=== PATIENT | male | born 1975 | race Caucasian/White ===

== ENCOUNTER 2016-12-30 21:54 | Inpatient (IN) | payer OTHER ==
[2016-12-30] MEDS ORDERED: Sodium Chloride 0.9% 1,000 ML IV ONE (22:25)
[2016-12-30 22:34] LABS: BASO # 0.1 K/uL (0.0-0.2); BASO % 0.7 % (0.0-2.0); EOS # 0.2 K/uL (0.0-0.7); EOS % 1.2 % (0.0-4.0); HEMOGLOBIN 15.4 g/dL (12.0-18.0); MEAN CELL VOLUME 88.4 fL (80.0-94.0); MEAN CORPUSCULAR HEMOGLOBIN 29.9 pg (27.0-31.0); MEAN CORPUSCULAR HGB CONC 33.8 g/dL (33.0-37.0); MEAN PLATELET VOLUME 7.5 fL (7.2-11.7); MONO % 6.6 % (0.0-10.0); NEUT # 10.7 K/uL (1.8-7.0); NEUT % 71.5 % (50.0-75.0); NRBC % 0.1 % (0.0-2.0); RBC 5.16 Mil/uL (4.40-5.90); RED CELL DISTRIBUTION WIDTH 13.9 % (11.5-14.5); WHITE BLOOD COUNT 14.9 K/uL (4.8-10.8)
--- NOTE | 2016-12-30 22:34 | C.PDOC ---
History Of Present Illness 41 year old male with no PMHx who presents to the ER with a complaint of right sided abdominal pain. Patient also reports having nausea; denies vomiting, fever , chills, or other complaints. Time Seen by Provider: 12/30/16 22:23 Chief Complaint (Nursing): Abdominal Pain History Per: Patient History/Exam Limitations: no limitations Onset/Duration Of Symptoms: Days Current Symptoms Are (Timing): Still Present Context: Food Location Of Pain/Discomfort: RUQ Radiation Of Pain To:: None Quality Of Discomfort: Unable To Describe Associated Symptoms: Nausea. denies: Fever, Chills, Vomiting Exacerbating Factors: None Alleviating Factors: None Recent travel outside of the [place]: No Past Medical History Reviewed: Historical Data, Nursing Documentation, Vital Signs Vital Signs: Last Vital Signs Temp 97.5 F L 12/31/16 08:00 Pulse 80 12/31/16 08:00 Resp 20 12/31/16 08:00 BP 105/68 12/31/16 08:00 Pulse Ox 96 12/31/16 08:00 - Medical History PMH: No Chronic Diseases Surgical History: No Surg Hx Family History: States: Unknown Family Hx - Social History Hx Alcohol Use: Yes Hx Substance Use: No - Immunization History Hx Tetanus Toxoid Vaccination: Yes Hx Influenza Vaccination: Yes Hx Pneumococcal Vaccination: No Review Of Systems Except As Marked, All Systems Reviewed And Found Negative. Constitutional: Negative for: Fever, Chills Gastrointestinal: Positive for: Nausea, Abdominal Pain. Negative for: Vomiting , Diarrhea Physical Exam - Physical Exam Appears: Non-toxic, No Acute Distress Skin: Normal Color, Warm, Dry Head: Atraumatic, Normacephalic Oral Mucosa: Moist Chest: Symmetrical, No Tenderness Cardiovascular: Rhythm Regular, No Murmur Respiratory: Normal Breath Sounds, No Rales, No Rhonchi, No Wheezing Gastrointestinal/Abdominal: Soft, Tenderness (RUQ), No Guarding, No Rebound Neurological/Psych: Oriented x3, Normal Speech, Normal Cognition ED Course And Treatment - Laboratory Results Result Diagrams: 12/31/16 11:55 12/31/16 11:55 O2 Sat by Pulse Oximetry: 99 (Room air) Pulse Ox Interpretation: Normal - CT Scan/US Abdominal US Other Rad Studies (CT/US): Read By Radiologist, Radiology Report Reviewed CT/US Interpretation: EXAM: US Abdomen Complete. CLINICAL HISTORY: 41 years old, male; Pain; Abdominal pain; Epigastric; Additional info: Abd pain. TECHNIQUE: Real-time ultrasound of the abdomen (complete) with image documentation. COMPARISON: No relevant prior studies available. FINDINGS: Liver: Fatty infiltration. No mass. No intrahepatic ductal dilatation. Gallbladder: No gallstones. No wall thickening. No pericholecystic fluid. No sonographic Weaver's. sign. Common bile duct: No dilatation. No stones. Pancreas: Unremarkable as visualized. Kidneys: Normal echogenicity. No hydronephrosis. Spleen: No splenomegaly. Aorta: Unremarkable. No aneurysm. Inferior vena cava: Unremarkable. Free fluid: No significant free fluid. IMPRESSION: 1. No acute findings. 2. Non-acute findings are described above. CT Abdomen Other Rad Studies (CT/US): Read By Radiologist, Radiology Report Reviewed CT/US Interpretation: EXAM: CT Abdomen and Pelvis With Intravenous Contrast. CLINICAL HISTORY: 41 years old, male; Pain; Abdominal pain; Additional info: Right sided abd pain. TECHNIQUE: Axial computed tomography images of the abdomen and pelvis with intravenous contrast. This CT. exam was performed using one or more of the following dose reduction techniques: automated. exposure control, adjustment of the mA and/or kV according to patient size, and/ or use of iterative. reconstruction technique. Coronal and sagittal reformatted images were created and reviewed. COMPARISON: US - ABDOMEN COMPLETE 12/30/2016 10:44:23 PM. FINDINGS: Lower thorax: Minimal atelectasis. Subcentimeter subpleural nodule vs focal scarring RIGHT middle. lobe. ABDOMEN : Liver: Fatty infiltration. Gallbladder and bile ducts: No calcified stones. No ductal dilation. Pancreas: No ductal dilation. No mass. Spleen: No splenomegaly. Adrenals: No mass. Kidneys and ureters: Too small to characterize lesion within RIGHT kidney. No hydronephrosis. Stomach and bowel: Apparent mild mural/fold thickening of jejunal loops. No associated. inflammatory stranding. Few segmental areas of underdistention of colon. No obstruction. Appendix: Enlarged proximal to mid appendix, measuring up to 0.9 cm in diameter. Apparent mild. mural thickening/enhancement. Appendicolith within distal appendix. No definite associated. stranding. PELVIS: Bladder: Unremarkable. Reproductive: Unremarkable as visualized. ABDOMEN and PELVIS: Intraperitoneal space: No significant fluid collection. No free air. Bones/ joints: No acute fracture. Soft tissues: Unremarkable. Vasculature: Minimal atherosclerotic disease. No aneurysm. Lymph nodes: No pathologically enlarged lymph nodes. IMPRESSION: 1. Mildly enlarged appendix with apparent mild wall thickening/enhancement with appendicolith. Appendicitis not excluded. 2. Possible mild enteritis. Clinical correlation is needed. 3. Incidental/non- acute findings are described above. Medical Decision Making Medical Decision Making: Impression: 41 year old male with RUQ pain. r/o gallbladder pathology Plan: * Blood work * Urinalysis * Abdominal US * Tylenol * Zofran * IV fluids * 1100: pt now with rlq pain ct added. noted luekocytosis. empiric zosyn dosed. ct pendign. Disposition - Disposition Disposition: HOSPITALIZED Disposition Time: 11:00 Condition: STABLE - Clinical Impression Clinical Impression: Appendicitis - Scribe Statement The provider has reviewed the documentation as recorded by the Scribe Javier Mcgrath All medical record entries made by the Josesitoiblane were at my direction and personally dictated by me. I have reviewed the chart and agree that the record accurately reflects my personal performance of the history, physical exam, medical decision making, and the department course for this patient. I have also personally directed, reviewed, and agree with the discharge instructions and disposition.
[2016-12-30] MEDS ORDERED: Sodium Chloride 0.9% 1,000 ML ONE (22:44)
[2016-12-30 22:46] LABS: PROTHROMBIN TIME 10.9 SECONDS (9.7-12.2)
[2016-12-30 22:48] LABS: ALBUMIN 4.3 g/dL (3.5-5.0)
[2016-12-30 22:51] LABS: ALB/GLOB RATIO 1.4 (1.0-2.1); AST/SGOT 30 U/L (17-59); GFR AFRICAN-AMERICAN > 60; GFR NON-AFRICAN AMERICAN > 60
[2016-12-30 22:52] LABS: ALT/SGPT 45 U/L (21-72); BLOOD UREA NITROGEN 20 mg/dL (9-20); CALCIUM 8.7 mg/dl (8.6-10.4); LIPASE 94 U/L (23-300)
[2016-12-30 23:06] LABS: URINE BILIRUBIN NEGATIVE (NEGATIVE); URINE BLOOD NEGATIVE (NEGATIVE); URINE CLARITY Clear (Clear); URINE COLOR Yellow (YELLOW); URINE GLUCOSE (UA) NORMAL (Normal); URINE LEUKOCYTE ESTERASE NEG Leu/uL (Negative); URINE NITRATE NEGATIVE (NEGATIVE); URINE PROTEIN NEGATIVE (NEGATIVE)
--- NOTE | 2016-12-30 23:14 | US ---
EXAM: US Abdomen Complete CLINICAL HISTORY: 41 years old, male; Pain; Abdominal pain; Epigastric; Additional info: Abd pain TECHNIQUE: Real-time ultrasound of the abdomen (complete) with image documentation. COMPARISON: No relevant prior studies available. FINDINGS: Liver: Fatty infiltration. No mass. No intrahepatic ductal dilatation. Gallbladder: No gallstones. No wall thickening. No pericholecystic fluid. No sonographic Weaver's sign. Common bile duct: No dilatation. No stones. Pancreas: Unremarkable as visualized. Kidneys: Normal echogenicity. No hydronephrosis. Spleen: No splenomegaly. Aorta: Unremarkable. No aneurysm. Inferior vena cava: Unremarkable. Free fluid: No significant free fluid. IMPRESSION: 1.No acute findings. 2.Non-acute findings are described above.
[2016-12-30] MEDS ORDERED: Iodixanol 320 MG/ML 100 ML BOTTLE IV ONE (23:30)
[2016-12-30] MEDS ORDERED: Piperacillin/Tazobact 3.375 gm 100 ML IVPB STA (23:59)
[2016-12-31] MEDS ORDERED: Piperacillin/Tazobact 3.375 gm 100 ML IVPB ONE ×2 (00:24→14:18)
--- NOTE | 2016-12-31 01:47 | CP.PCM.HP ---
<Doug Bynum - Last Filed: 12/31/16 07:20> History of Present Illness - History of Present Illness History of Present Illness: 41M w/ no significant PMHx presented to the ED w/ complaints of RLQ abdominal pain. Patient mentioned pain began Friday afternoon, states pain got progressively worse throughout the weekend. Currently reports pain as an 8/10. Patient states he has been feeling nauseous but denies vomiting. Denies having similar symptoms in the past. Denies taking medication to alleviate pain. Notes decreased appetite since pain began. Currently denies fever/chills, chest pain, SOB, dysuria, diarrhea, constipation. . Present on Admission - Present on Admission Any Indicators Present on Admission: No Review of Systems - Review of Systems Review of Systems: 12pt ROS negative, except as stated in HPI Past Patient History - Past Social History Smoking Status: Heavy Smoker > 10 Cigarettes Daily - PSYCHIATRIC Hx Substance Use: No - SURGICAL HISTORY Hx Surgeries: No Meds Allergies/Adverse Reactions: Allergies Allergy/AdvReac Type Severity Reaction Status Date / Time No Known Allergies Allergy Unverified 12/30/16 22:12 Physical Exam - Constitutional Appears: No Acute Distress - Head Exam Head Exam: NORMOCEPHALIC - Eye Exam Eye Exam: Normal appearance - ENT Exam ENT Exam: Mucous Membranes Moist - Respiratory Exam Respiratory Exam: NORMAL BREATHING PATTERN - Cardiovascular Exam Cardiovascular Exam: +S1, +S2 - GI/Abdominal Exam GI & Abdominal Exam: Guarding, Rebound, Tenderness. absent: Distended, Firm, Rigid Additional comments: +psoas +RLQ tenderness +McBurney's - Neurological Exam Neurological exam: Alert, Oriented x3 - Psychiatric Exam Psychiatric exam: Normal Mood - Skin Skin Exam: Dry, Warm Results - Vital Signs Recent Vital Signs: Last Vital Signs Temp 98.4 F 12/31/16 01:31 Pulse 70 12/31/16 01:31 Resp 18 12/31/16 01:31 BP 117/80 12/31/16 01:31 Pulse Ox 98 12/31/16 01:31 - Labs Result Diagrams: 12/30/16 22:30 12/30/16 22:30 Assessment & Plan - Assessment and Plan (Free Text) Assessment: 41M w/ acute appendicitis -NPO -IVF -Abx -Analgesics/Anti-emetics -EKG -Coags -OR in AM for laparoscopic appendectomy -Further recs per Dr. Leonardo <Brian Leonardo - Last Filed: 12/31/16 16:41> Results - Vital Signs Recent Vital Signs: Last Vital Signs Temp 97.5 F L 12/31/16 08:00 Pulse 80 12/31/16 08:00 Resp 20 12/31/16 08:00 BP 105/68 12/31/16 08:00 Pulse Ox 99 12/31/16 13:54 - Labs Result Diagrams: 12/31/16 11:55 12/31/16 11:55 Labs: Laboratory Results - last 24 hr 12/31/16 12/31/16 11:55 11:55 WBC 6.3 D RBC 4.80 Hgb 14.5 Hct 42.5 MCV 88.7 MCH 30.1 MCHC 34.0 RDW 13.3 Plt Count 218 MPV 7.5 Sodium 139 Potassium 3.9 Chloride 103 Carbon Dioxide 26 Anion Gap 14 BUN 12 Creatinine 0.9 Est GFR ( Amer) > 60 Est GFR (Non-Af Amer) > 60 Random Glucose 86 Calcium 8.1 L Attending/Attestation - Attestation I have personally seen and examined this patient.: Yes I have fully participated in the care of the patient.: Yes I have reviewed all pertinent clinical information: Yes Notes (Text): 12/31/16 16:37 Pt was seen and examined at bedside on 12/31/16 Agree with above note and assessment Pt with acute Appendicitis PMH: None PSH: None Allergies: None Medication: reviewed Family history: Not contributory OR for Lap Appendectomy possible Open Consent NPO, IVF, IV antibiotics Plan d.w pt in detail Risk and benefit explained in detail.
[2016-12-31] MEDS: Lactated Ringer's 1,000 ML IV SCH ×3 (02:08→18:56)
--- NOTE | 2016-12-31 08:28 | CT ---
PROCEDURE: CT Abdomen and Pelvis with contrast HISTORY: right sided abd pain COMPARISON: Abdominal ultrasound performed 12/30/16 TECHNIQUE: Contrast dose: 100 mL Visipaque 320 Radiation dose: Total exam DLP = 448.29 mGy-cm. This CT exam was performed using one or more of the following dose reduction techniques: Automated exposure control, adjustment of the mA and/or kV according to patient size, and/or use of iterative reconstruction technique. FINDINGS: LOWER THORAX: Minimal atelectasis. No visible pleural effusion or pneumothorax. 3 mm lingular lymph node (series 5, image 2). Sub cm subpleural nodule versus focal scarring, right middle lobe. LIVER: Hypoattenuation of the liver consistent with hepatic steatosis. GALLBLADDER AND BILE DUCTS: Contracted gallbladder state limits evaluation. PANCREAS: Unremarkable. SPLEEN: Unremarkable. ADRENALS: Unremarkable. KIDNEYS AND URETERS: The kidneys enhance symmetrically. No hydronephrosis or obstructing calculus identified. Too small to characterize 4 mm hypodensity within the right kidney ; statistically likely a cyst or hemangioma. VASCULATURE: No aortic aneurysm. BOWEL: Stomach is nondistended. Lack of oral contrast limits evaluation for bowel pathology. Bowel loops appear within normal limits of caliber without evidence of obstruction. Mild mural/fold thickening involving the jejunum. No associated inflammatory stranding appreciated. APPENDIX: The proximal to mid appendix appears dilated measuring up to approximately 11 mm in diameter. Subtle apparent mural thickening/ enhancement. Tiny calcification within the lumen consistent with appendicolith. No significant periappendiceal inflammatory changes appreciated. PERITONEUM: No significant free fluid. No definite free air. LYMPH NODES: No bulky adenopathy identified. BLADDER: Unremarkable. REPRODUCTIVE: The prostate gland measures approximately 4.1 x 4.6 cm. BONES: Mild degenerative changes. OTHER FINDINGS: None. IMPRESSION: Enlarged appendix with apparent wall thickening/enhancement and appendicolith. No significant periappendiceal inflammatory changes identified. Correlate clinically for possibility of appendicitis. Possible mild enteritis. Correlate clinically. Additional incidental findings as above. Preliminary impression was provided by virtual radiologic.
[2016-12-31] MEDS: Piperacillin/Tazobact 3.375 GM in Sodium Chloride 100 ML IVPB SCH ×2 (09:38→16:59)
[2016-12-31 12:08] LABS: HEMOGLOBIN 14.5 g/dL (12.0-18.0); MEAN CELL VOLUME 88.7 fL (80.0-94.0); MEAN CORPUSCULAR HEMOGLOBIN 30.1 pg (27.0-31.0); MEAN PLATELET VOLUME 7.5 fL (7.2-11.7); RBC 4.8 Mil/uL (4.40-5.90); RED CELL DISTRIBUTION WIDTH 13.3 % (11.5-14.5)
[2016-12-31 12:14] LABS: WHITE BLOOD COUNT 6.3 K/uL (4.8-10.8)
[2016-12-31 12:23] LABS: GFR AFRICAN-AMERICAN > 60; GFR NON-AFRICAN AMERICAN > 60
[2016-12-31 12:24] LABS: BLOOD UREA NITROGEN 12 mg/dL (9-20); CALCIUM 8.1 mg/dl (8.6-10.4)
[2016-12-31] MEDS ORDERED: Lidocaine 1% Inj (20ml) ONE (13:45)
[2016-12-31] MEDS ORDERED: Bupivacaine-Epi 0.25%-1:200,000 PF Inj ONE (13:45)
[2016-12-31] MEDS ORDERED: Lactated Ringer's 1,000 ML IV ONE ×2 (14:50→16:00)
[2016-12-31] MEDS ORDERED: Propofol 10 mg/ml Inj (20 ML) ONE (14:54)
[2016-12-31] MEDS ORDERED: Midazolam 2 MG/2 ML VIAL ONE (14:55)
[2016-12-31] MEDS ORDERED: Rocuronium 10 mg/ml (5 ml) ONE (15:30)
[2016-12-31] MEDS ORDERED: Neostigmine Methylsulfate 3mg/3ml Syringe IV ONE (15:47)
--- NOTE | 2016-12-31 16:34 | PCM.SURG1 ---
Surgeon's Initial Post Op Note - Surgeon's Notes Surgeon: Dr. Leonardo Manager Background: Duyen Crook, PGY2; Mark Cabello, OMS3 Pre-Operative Diagnosis: Acute appendicitis Operative Findings: see full operative report Post-Operative Diagnosis: same Operation Performed: Laparoscopic appendectomy Specimen/Specimens Removed: appendix Estimated Blood Loss: EBL {In ML}: 50 Date of Surgery/Procedure: 12/31/16 Time of Surgery/Procedure: 15:00
[2016-12-31] MEDS: HYDROmorphone 0.5 mg/0.5 ml ISec IVP PRN ×3 (16:51→18:02)
[2017-01-01 00:02] VITALS: RESP 20
[2017-01-01] MEDS: Piperacillin/Tazobact 3.375 GM in Sodium Chloride 100 ML IVPB SCH ×2 (00:15→09:05)
[2017-01-01] MEDS: Lactated Ringer's 1,000 ML IV SCH (01:00)
--- NOTE | 2017-01-01 05:26 | OP ---
PROCEDURE DATE: 12/31/2016 PREOPERATIVE DIAGNOSIS: Acute appendicitis. POSTOPERATIVE DIAGNOSIS: Acute appendicitis. PROCEDURE: Laparoscopic appendectomy. SURGEON: Dr. Brian Leonardo CANDLE EXTRUSION MACHINE OPERATOR: uDyen Crook. TYPE OF ANESTHESIA: General endotracheal anesthesia. ESTIMATED BLOOD LOSS: Around 10 mL DRAIN: None. COMPLICATIONS: None. SPECIMEN: Appendiceal was sent to pathology. INTRAOPERATIVE FINDINGS: The patient had two days of *------* acute appendicitis. DESCRIPTION OF PROCEDURE: On intraoperative test, this is a 41-year-old male who was diagnosed with acute appendicitis and the patient was consented for laparoscopic appendectomy, possible open. The patient was brought to the OR, and placed supine on the operating table. After induction of the anesthesia, the abdomen was prepped and draped in the usual sterile fashion. Supraumbilical transverse 1.5 cm incision was made. We incised the skin, subcutaneous tissue and fascia. The Katherin port was placed. Pneumo was created. After creation of pneumoperitoneum, a 12-mm port was placed in left lower quadrant. Another 5-mm port was placed in the suprapubic region and after that appendix was identified. The patient was found to have paracecal appendix and another 5-mm port was placed in the right upper quadrant for the retraction of the intestine and the mesoappendix was resected with Harmonic scalpel. Base of the appendix was dissected with MARISSA. The appendix was taken in Endo Catch bag, taken out through the umbilical port site and sent off the table for pathology. There was proper hemostasis in each and every part of the procedure. The umbilical incision was closed in 2 layers , the fascia with 0 Vicryl in double sutures and skin with 4-0 Monocryl, and dry sterile dressing was applied. The patient tolerated the procedure well. Count of the instrument was correct. There were no apparent complications. The patient was sent to the postanesthesia care unit in stable condition. Brian Leonardo MD
[2017-01-01] MEDS ORDERED: Oxycodone/Acetaminophen 5/325 mg Tab PO PRN ×2 (05:27→07:00)
[2017-01-01 07:19] LABS: HEMOGLOBIN 13.5 g/dL (12.0-18.0); MEAN CELL VOLUME 88.7 fL (80.0-94.0); MEAN CORPUSCULAR HEMOGLOBIN 29.8 pg (27.0-31.0); MEAN CORPUSCULAR HGB CONC 33.6 g/dL (33.0-37.0); MEAN PLATELET VOLUME 7.8 fL (7.2-11.7); RBC 4.54 Mil/uL (4.40-5.90); RED CELL DISTRIBUTION WIDTH 13.5 % (11.5-14.5); WHITE BLOOD COUNT 9.3 K/uL (4.8-10.8)
[2017-01-01 07:31] LABS: ALBUMIN 3.4 g/dL (3.5-5.0)
[2017-01-01 07:34] LABS: ALB/GLOB RATIO 1.3 (1.0-2.1); ALT/SGPT 42 U/L (21-72); AST/SGOT 23 U/L (17-59); BLOOD UREA NITROGEN 11 mg/dL (9-20); CALCIUM 8.1 mg/dl (8.6-10.4); GFR AFRICAN-AMERICAN > 60; GFR NON-AFRICAN AMERICAN > 60
[2017-01-01 07:56] VITALS: BP 113/66; PULSE 73; TEMP 98.3; O2SAT 95
--- NOTE | 2017-01-01 07:59 | CP.PCM.DIS ---
Provider - Provider Date of Admission: 12/31/16 00:39 Attending physician: Brian Leonardo MD Time Spent in preparation of Discharge (in minutes): 35 Diagnosis - Discharge Diagnosis (1) Appendicitis Status: Acute Hospital Course - Lab Results Lab Results: Most Recent Lab Values WBC 9.3 K/uL (4.8-10.8) 01/01/17 07:01 RBC 4.54 Mil/uL (4.40-5.90) 01/01/17 07:01 Hgb 13.5 g/dL (12.0-18.0) 01/01/17 07:01 Hct 40.2 % (35.0-51.0) 01/01/17 07:01 MCV 88.7 fL (80.0-94.0) 01/01/17 07:01 MCH 29.8 pg (27.0-31.0) 01/01/17 07:01 MCHC 33.6 g/dL (33.0-37.0) 01/01/17 07:01 RDW 13.5 % (11.5-14.5) 01/01/17 07:01 Plt Count 207 K/uL (130-400) 01/01/17 07:01 MPV 7.8 fL (7.2-11.7) 01/01/17 07:01 Neut % (Auto) 71.5 % (50.0-75.0) 12/30/16 22:30 Lymph % (Auto) 20.0 % (20.0-40.0) 12/30/16 22:30 [place] % (Auto) 6.6 % (0.0-10.0) 12/30/16 22:30 Eos % (Auto) 1.2 % (0.0-4.0) 12/30/16 22:30 Baso % (Auto) 0.7 % (0.0-2.0) 12/30/16 22:30 Neut # 10.7 K/uL (1.8-7.0) H 12/30/16 22:30 Lymph # 3.0 K/uL (1.0-4.3) 12/30/16 22:30 [place] # 1.0 K/uL (0.0-0.8) H 12/30/16 22:30 Eos # 0.2 K/uL (0.0-0.7) 12/30/16 22:30 Baso # 0.1 K/uL (0.0-0.2) 12/30/16 22:30 PT 10.9 SECONDS (9.7-12.2) 12/30/16 22:36 INR 1.0 12/30/16 22:36 APTT 33 SECONDS (21-34) 12/30/16 22:36 Sodium 138 mmol/L (132-148) 01/01/17 07:01 Potassium 4.0 mmol/L (3.6-5.2) 01/01/17 07:01 Chloride 102 mmol/L (98-107) 01/01/17 07:01 Carbon Dioxide 25 mmol/L (22-30) 01/01/17 07:01 Anion Gap 14 (10-20) 01/01/17 07:01 BUN 11 mg/dL (9-20) 01/01/17 07:01 Creatinine 1.1 MG/DL (0.8-1.5) 01/01/17 07:01 Est GFR ( Amer) > 60 01/01/17 07:01 Est GFR (Non-Af Amer) > 60 01/01/17 07:01 Random Glucose 87 mg/dL (75-110) 01/01/17 07:01 Calcium 8.1 mg/dl (8.6-10.4) L 01/01/17 07:01 Total Bilirubin 0.9 mg/dL (0.2-1.3) 01/01/17 07:01 AST 23 U/L (17-59) 01/01/17 07:01 ALT 42 U/L (21-72) 01/01/17 07:01 Alkaline Phosphatase 43 U/L (38-126) 01/01/17 07:01 Total Protein 6.1 g/dL (6.3-8.3) L 01/01/17 07:01 Albumin 3.4 g/dL (3.5-5.0) L D 01/01/17 07:01 Globulin 2.7 gm/dL (2.2-3.9) 01/01/17 07:01 Albumin/Globulin Ratio 1.3 (1.0-2.1) 01/01/17 07:01 Lipase 94 U/L (23-300) 12/30/16 22:30 Urine Color Yellow (YELLOW) 12/30/16 22:51 Urine Clarity Clear (Clear) 12/30/16 22:51 Urine pH 6.0 (5.0-8.0) 12/30/16 22:51 Ur Specific [place] 1.024 (1.003-1.030) 12/30/16 22:51 Urine Protein Negative mg/dL (NEGATIVE) 12/30/16 22:51 Urine Glucose (UA) Normal mg/dL (Normal) 12/30/16 22:51 Urine Ketones Negative mg/dL (NEGATIVE) 12/30/16 22:51 Urine Blood Negative (NEGATIVE) 12/30/16 22:51 Urine Nitrate Negative (NEGATIVE) 12/30/16 22:51 Urine Bilirubin Negative (NEGATIVE) 12/30/16 22:51 Urine Urobilinogen 2.0 mg/dL (0.2-1.0) 12/30/16 22:51 Ur Leukocyte Esterase Neg Daysi/uL (Negative) 12/30/16 22:51 Urine WBC (Auto) < 1 /hpf (0-5) 12/30/16 22:51 Urine RBC (Auto) 1 /hpf (0-3) 12/30/16 22:51 - Hospital Course Hospital Course: Patient is a 41 year old male who denied any past medical or past surgical history presented to the ER with 3 days of RLQ abdominal pain and nausea. CT of the abdomen revealed a dilated appendix. Patient was taken to the OR for a laparoscopic cholecystectomy without complications. Patient tolerated the procedure well, tolerating pain with PO pain regimen, tolerating regular diet, voiding freely, and ambulating well, with no leukocytosis on POD #1. Plan to discharge kay to home with PO pain medications and to follow up with Dr. Leonardo outpatiently in 2 weeks was discussed with patient, who expressed understanding and agreed to plan. For full hospital course, please refer to full chart. Discharge Exam - Head Exam Head Exam: ATRAUMATIC, NORMOCEPHALIC - Eye Exam Eye Exam: Normal appearance. absent: Conjunctival injection, Scleral icterus - ENT Exam ENT Exam: Mucous Membranes Moist, Normal Oropharynx - Respiratory Exam Respiratory Exam: NORMAL BREATHING PATTERN. absent: Accessory Muscle Use, Respiratory Distress - Cardiovascular Exam Cardiovascular Exam: REGULAR RHYTHM - GI/Abdominal Exam GI & Abdominal Exam: Soft, Tenderness (appropriate tenderness to palpation around the incisions and in the RLQ). absent: Distended Additional comments: Surgical dressing c/d/i - Extremities Exam Extremities exam: pedal pulses present Additional comments: No calf tenderness or pedal edema - Neurological Exam Neurological exam: Alert, Oriented x3 - Psychiatric Exam Psychiatric exam: Normal Affect, Normal Mood - Skin Skin Exam: Dry, Normal Color, Warm Discharge Plan - Discharge Medications Prescriptions: Docusate [Colace] 100 mg PO TID PRN 5 Days PRN Reason: Constipation - Follow Up Plan Condition: STABLE Disposition: HOME/ ROUTINE Patient education suggested?: Yes Instructions: Oxycodone/Acetaminophen (By mouth), Laxative, Stool Softeners ( By mouth), Appendicitis (DC), Laparoscopic Appendectomy (DC) Additional Instructions: Call today to schedule an appointment with Dr. Leonardo in 2 weeks Follow up with your primary physician in 1-2 weeks Bandaids can be removed on Friday, leave the white strips of tape underneath on until they fall off on their own. Do not get the bandages wet until Friday. If you want to shower you must cover the bandages with something water proof. After Friday you may shower normally but do not soak or apply ointment to the incisions (no taking baths or swimming) . You may resume normal daily activities and return to work with light duty but do not lift anything greater than 10 pounds until cleared by Dr. Leonardo. Call Dr. Leonardo's office or return to the ER for any fever >100.4, nausea and vomiting, drainage or bleeding from the incision sites, or any other concerning symptoms. Referrals: Brian Leonardo MD [Staff Provider] - Clinical Quality Measures - CQM - Stroke Antithrombotic Prescribed: Medical Contraindication Present Contranindication/Reason for not providing: Risk for Bleeding (surgery)
[2017-01-01] MEDS ORDERED: Pneumococcal 23-Valent Vaccine IM ONE (12:30)
== END 2017-01-01 13:30 | disposition home or self-care (01) | DRG 883 ==
LOC: C.ER 21:54 → C.9E 12-31 00:39 → C.3T 12-31 01:05
PROVIDERS: ADMIT Surgery Surgical Critical Care; ATTEND Surgery Surgical Critical Care
PROC: 0DTJ4ZZ Resection of Appendix, Percutaneous Endoscopic Approach (ICD-10-PCS; principal; 2017-01-01)
DX: K35.89 Other acute appendicitis (principal); F17.210 Nicotine dependence, cigarettes, uncomplicated